=== PATIENT | male | born 1965 | race Two or more races ===

== ENCOUNTER 2021-07-23 11:56 | Emergency (ER) | payer OTHER ==
[~2021-07-23] VITALS: Ht 170.2 cm; Wt 72.6 kg
[2021-07-23 13:10] LABS: Eosinophils % (auto) 0.8 % (0.0-7.0); Hemoglobin 7.9 g/dL (13.5-17.5)
[2021-07-23 13:11] LABS: Basophils # (auto) 0.1 10 ^3/uL (0-0.2); Basophils % (auto) 0.6 % (0.0-2.0); Eosinophils # (auto) 0.2 10 ^3/uL (0-0.8); Lymphocytes # (auto) 6.8 10 ^3/uL (0.4-5.4); Lymphocytes % (auto) 34.7 % (10.0-50.0); Mean Corpuscular Hemoglobin 52.7 pg (28.0-32.0); Mean Corpuscular Volume 133.6 fL (80.0-100.0); Monocytes # (auto) 1.3 10 ^3/uL (0-1.3); Monocytes % (auto) 6.8 % (0.0-12.0); Neutrophils # (auto) 11.1 10 ^3/uL (1.6-8.6); Neutrophils % (auto) 57.1 % (37.0-80.0); Nucleated Red Blood Cells % 1.5 %; Red Blood Cells 1.49 10^6/uL (4.5-5.90); Red Cell Distribution Width 19.9 % (11.8-14.3); White Blood Cell 19.5 10^3/uL (4.4-10.8)
[2021-07-23] MEDS ORDERED: SODIUM CHLORIDE 0.9% 1,000 ML IV ONE (13:15)
[2021-07-23 13:19] LABS: Mean Corpuscular Hgb Conc. 39.4 g/dL (32.0-36.0)
[2021-07-23 13:35] LABS: Albumin 2.9 g/dL (3.4-5.0); Calcium 8.3 mg/dL (8.5-10.1); Potassium 3.6 mmol/L (3.5-5.1)
[2021-07-23 13:39] LABS: BUN/Creatinine Ratio 5.2; Bilirubin, Total 0.2 mg/dL (0.2-1.0); Total Protein 8.2 g/dL (6.4-8.2)
[2021-07-23 20:53] VITALS: BP 157/100
== END 2021-07-23 23:12 | disposition short-term general hospital (02) ==
LOC: EDBD 11:56 → ER 11:56
DX: G93.41 Metabolic encephalopathy (principal); I12.0 Hypertensive chronic kidney disease with stage 5 chronic kidney disease or end stage renal disease; N18.6 End stage renal disease; Z99.2 Dependence on renal dialysis; Z20.822 Contact with and (suspected) exposure to COVID-19
CPT/HCPCS: 36415; 70450; 71045; 80053; 82962; 83605; 83735; 83880; 84484; 85025; 87040; 87426; 93005; 96360; 96361; 99291; J7030